=== PATIENT | male | born 1995 | race Caucasian/White ===

== ENCOUNTER 2022-04-10 17:22 | Emergency (ER) | payer BC, OTHER ==
[2022-04-10 17:36] VITALS: BP 141/73
--- NOTE | 2022-04-10 17:55 | XRAY Report ---
PROCEDURE: Chest 2 View X-Ray INDICATIONS: Chest pain TECHNIQUE: 2 views of the chest were acquired. COMPARISON: None. FINDINGS: Surgical changes and devices: Eliana bar noted. Lungs and pleura: No pleural effusions or pneumothorax. Lungs are clear. Mediastinum: Mediastinal contours are normal. Heart size is normal. Bones and chest wall: Mild pectus excavatum. No suspicious bony abnormalities. Soft tissues appear u nremarkable. IMPRESSION: Mild pectus excavatum with Eliana bar in place. No acute finding. Reviewed by: Tre Gabriel MD on 04/10/2022 4:53 PM [facility] Approved by: Tre Gabriel MD on 04/10/2022 4:53 PM [facility] Station ID: [id number]
[2022-04-10] MEDS ORDERED: IBUPROFEN 600 MG TABLET PO STA (19:25)
--- NOTE | 2022-04-10 19:39 | ED Physician Documentation ---
History of Present Illness - Stated complaint Stated Complaint: CHEST & ARM PX - Chief complaint Chief Complaint: Resp - Additonal information Additional information: 26-year-old male presents emergency department for evaluation of chest pain. He does have a history of pectus excavated him and underwent the new scar placement about 3 months ago at [facility]. He reports that the procedure was complicated by pneumothorax. This morning when he got off of work he noticed that he felt suddenly to have generalized body aches and he vomited. When he got home he vomited again. Since then he has had some anterior chest pain and was concerned that he could have a pneumothorax or displacement of the janes bar. Review of Systems Constitutional: reports: Myalgias. denies: Fever, Chills Throat: reports: Reviewed and negative Cardiac: reports: Chest pain / pressure Respiratory: reports: Reviewed and negative GI: reports: Nausea, Vomiting, Reviewed and negative : reports: Reviewed and negative Skin: reports: Reviewed and negative Musculoskeletal: reports: Reviewed and negative PD PAST MEDICAL HISTORY - Present Medications Home Medications: Ambulatory Orders Medication Instructions Recorded Confirmed No Known Home Medications 04/10/22 04/10/22 - Allergies Allergies/Adverse Reactions: Allergies Allergy/AdvReac Type Severity Reaction Status Date / Time No Known Drug Allergies Allergy Verified 04/10/22 17:36 PD ED PE NORMAL - General General: Alert and oriented X 3, No acute distress - HEENT HEENT: PERRL - Neck Neck: Supple, no meningeal sign - Cardiac Cardiac: RRR, No murmur - Respiratory Respiratory: No respiratory distress, Clear bilaterally - Abdomen Abdomen: Normal bowel sounds, Soft - Back Back: No CVA TTP, No spinal TTP - Derm Derm: Normal color, Warm and dry, No rash, Other (Well-healed surgical incision on anterior chest) - Extremities Extremities: No deformity, No tenderness to palpate - Neuro Neuro: Alert and oriented X 3, telephone interviewer 2-12 intact Eye Opening: Spontaneous Motor: Obeys Commands Verbal: Oriented GCS Score: 15 Results - Vitals Vitals: Vital Signs - 24 hr 04/10/22 17:32 Temperature 36.7 C Heart Rate 70 Respiratory 16 Rate Blood Pressure 141/73 H O2 Saturation 100 Oxygen O2 Source Room air - Rads (name of study) cxr 2 v Radiology: Final report received (Mild pectus excavatum with Janes bar in place. No acute finding) PD MEDICAL DECISION MAKING - ED course Complexity details: reviewed results, re-evaluated patient, considered differential, d/w patient ED course: 26-year-old male presents emergency department for evaluation of anterior chest pain. He does have a history of pectus excavated him and had the janes bar placed approximately 3 months ago at [facility]. This was complicated by a pneumothorax. This morning he developed generalized body aches subjective fevers chills and vomited twice. Since then with the pain he had been concerned that the hardware had moved or he could potentially have a recurrent pneumo. On exam he appears remarkably well without hypoxia or respiratory distress. A 2 view chest x-ray shows no findings to suggest pneumonia, or pneumothorax. The janes bar is in appropriate position. I discussed with patient that the likely etiology of his symptoms was a flulike illness though he declined PCR testing which is appropriate given his otherwise unremarkable exam. He was administered ibuprofen for analgesia and discharged home in stable condition with usual emergent return precautions discussed. Departure - Departure Disposition: 01 Home, Self Care Clinical Impression: Flu-like symptoms, Pectus excavatum Condition: Stable Record reviewed to determine appropriate education?: Yes Comments: Marty you are seen today in the emergency department because this morning you developed body aches had nausea vomiting and since then have had some chest pain. You were concerned that your hardware could have been misplaced or you could have developed a pneumothorax. We did do a chest x-ray today that does not show anything to suggest pneumonia, pneumothorax or malpositioning of your janes bar. I suspect that you likely have a flulike illness or even influenza. I recommend that you take 600 mg of Motrin with food 2-3 times a day or alternate 500 mg of Tylenol. Get plenty rest and drink lots of fluids I would expect your symptoms to be getting better over the next 3 to 5 days. Return to the emergency department if you develop any severe respiratory distress, have uncontrolled nausea or vomiting.
== END 2022-04-10 19:53 | disposition home or self-care (01) ==
LOC: ED 17:22
DX: R07.9 Chest pain, unspecified (principal); M79.10 Myalgia, unspecified site; R11.10 Vomiting, unspecified; Q67.6 Pectus excavatum; Z96.9 Presence of functional implant, unspecified
CPT/HCPCS: 71046; 99282; 99283; A9270